=== PATIENT | male | born 1985 | race Hispanic/Latino ===

== ENCOUNTER 2019-05-24 20:04 | Emergency (ER) | payer OTHER, SELFPAY ==
[2019-05-24] MEDS: HYDROMORPHONE 1 MG INJ (20:05)
[2019-05-24 20:13] VITALS: BP 147/84; PULSE 109; RESP 24; O2SAT 100
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
[2019-05-24] MEDS: HYDROMORPHONE 1 MG INJ IV (20:35)
[2019-05-24] MEDS: SODIUM CHLORIDE 0.9% 1,000 ML 250 ML IV (20:35)
[2019-05-24] MEDS: TET,DIPH,PERTUSS(ACELL),VAC/PF 0.5 ML SYRINGE IM (20:36)
[2019-05-24 20:55] VITALS: BP 130/75; PULSE 97; RESP 18; O2SAT 99
[2019-05-24 21:18] VITALS: BP 128/73; PULSE 92; RESP 14; O2SAT 99
== END 2019-05-24 21:30 | disposition short-term general hospital (02) ==
PROVIDERS: Emergency Provider Emergency Medicine
DX: T22.20XA Burn of second degree of shoulder and upper limb, except wrist and hand, unspecified site, initial encounter (principal); T31.0 Burns involving less than 10% of body surface; Y99.0 Civilian activity done for income or pay; Z23 Encounter for immunization
CPT/HCPCS: 36415; 90471; 96361; 96374; 99284; 99285; 90715; J1170